=== PATIENT | female | born 1980 | race Caucasian/White ===

== ENCOUNTER 2021-07-16 08:00 | Emergency (ER) | payer OTHER ==
[~2021-07-16] VITALS: Ht 170.2 cm; Wt 79.8 kg
--- NOTE | 2021-07-16 08:01 | NUR ---
BROUGHT IN BY [facility] AND PLACED IN BED #5, TRIAGED, REPORT GIVEN TO AVINASH. PT STATES WHILE WORKING AT [email or web address], SUDDEN ONSET OF DIZZINESS AND PT STATES SHE HAS NOT FELT GOOD FOR 2 DAYS.
[2021-07-16 08:02] VITALS: BP_SYST 138
--- NOTE | 2021-07-16 08:19 | NUR ---
Pt in bed #5 c/o coming from work via BLS having sudden onset of dizziness and nausea while at work this morning. Pt denies any vomiting. No chest pain and no sob. Connected pt to quality assurance monitor and VSS. NKA. Pt states she has no known medical conditions. Bed in lowest position.
--- NOTE | 2021-07-16 08:22 | NUR ---
Dr. Stephenson at bedside examining pt.
--- NOTE | 2021-07-16 08:31 | NUR ---
EKG being done at bedside .
[2021-07-16 09:05] LABS: BASOPHILS # (AUTO) 0.1 K/uL (0.0-0.2); BASOPHILS % (AUTO) 0.5 % (0.0-2.0); EOSINOPHILS # (AUTO) 0.1 K/uL (0.0-0.4); EOSINOPHILS % (AUTO) 0.9 % (0.0-4.0); HEMATOCRIT 40.2 % (36-48); HEMOGLOBIN 13.3 g/dL (12.0-16.0); LYMPHOCYTES # (AUTO) 2.4 K/uL (1.0-5.5); LYMPHOCYTES % (AUTO) 25.5 % (20.5-51.5); MEAN CORPUSCULAR HEMOGLOBIN 27 pg (27-31); MEAN CORPUSCULAR HGB CONC 33 % (32-36); MEAN CORPUSCULAR VOLUME 80 fL (79.0-98.0); MONOCYTES # (AUTO) 0.4 K/uL (0.0-1.0); MONOCYTES % (AUTO) 4.4 % (1.7-9.3); NEUTROPHILS # (AUTO) 6.5 K/uL (1.8-7.7); NEUTROPHILS % (AUTO) 68.7 % (40.0-70.0); PLATELET COUNT (AUTO) 384 K/uL (130-430); RED BLOOD CELL COUNT(AUTO) 5.02 MIL/uL (4.2-6.2); RED CELL DISTRIBUTION WIDTH 13.5 % (9.0-15.0); WHITE BLOOD COUNT (AUTO) 9.4 K/uL (4.8-10.8)
[2021-07-16 09:24] LABS: CALCIUM 9.7 mg/dL (8.4-11.0); CREATININE 0.91 mg/dL (0.55-1.30); POTASSIUM 3.6 mmol/L (3.5-5.1)
[2021-07-16 09:35] LABS: ALBUMIN 3.8 g/dL (3.4-4.8); TOTAL BILIRUBIN 0.5 mg/dL (0.0-1.0)
[2021-07-16 10:24] VITALS: BP_SYST 132
--- NOTE | 2021-07-16 10:25 | NUR ---
Patient given written and verbal discharge instructions and verbalizes understanding. ER MD discussed with patient the results and treatment provided. Patient in stable condition. ID arm band removed. Patient educated on pain management and to follow up with PMD. Pain Scale . Opportunity for questions provided and answered. Medication side effect fact sheet provided.
== END 2021-07-16 10:25 | disposition home or self-care (01) ==
LOC: SED 08:00
DX: R42 Dizziness and giddiness (principal)
CPT/HCPCS: 36415; 80053; 83735; 84703; 85025; 93005; 99284